=== PATIENT | female | born 1980 | race African-American/Black ===

== ENCOUNTER 2022-08-28 15:31 | Emergency (ER) | payer MEDICAID ==
[~2022-08-28] VITALS: Ht 167.6 cm; Wt 75.0 kg
[2022-08-28 15:36] VITALS: BP 215/137
[2022-08-28 20:09] LABS: BASOPHILS % 0.7 % (0.0-2.0); HEMATOCRIT. 33.2 % (36.0-48.0); HEMOGLOBIN. 10.4 g/dL (12.0-16.0); LYMPHOCYTES % 46.7 % (20.0-50.0); MEAN CORPUSCULAR HEMOGLOBIN 20.1 pg (28.0-32.0); MEAN CORPUSCULAR VOLUME 64.2 fL (81.0-99.0); MEAN PLATELET VOLUME 9.3 fl (7.4-10.4); MONOCYTES % 10.5 % (2.0-8.0); NEUTROPHILS % 40.1 % (40.0-76.0); PLATELET 399 x1000/uL (130-400); RED BLOOD CELL COUNT 5.17 mill/uL (4.2-5.4); RED CELL DISTRIBUTION WIDTH 20.3 % (11.6-14.6)
[2022-08-28 20:18] LABS: CHLORIDE 103 mEq/L (98-107)
[2022-08-28 20:37] LABS: PLATELET ESTIMATE NORMAL
[2022-08-28] MEDS ORDERED: AMLODIPINE 10MG TABLET PO ONE (22:45)
[2022-08-28] MEDS ORDERED: HYDRALAZINE HCL 25MG TABLET PO ONE (23:15)
== END 2022-08-28 23:00 | disposition home or self-care (01) ==
LOC: ER 15:54
DX: R07.89 Other chest pain (principal); Z59.00 Homelessness unspecified; I10 Essential (primary) hypertension
CPT/HCPCS: 36415; 71045; 80053; 81025; 84484; 85025; 93005; 99285